=== PATIENT | male | born 1940 | race Caucasian/White ===

== ENCOUNTER 2020-09-05 17:30 | Emergency (ER) | payer OTHER ==
[~2020-09-05] VITALS: Ht 170.2 cm; Wt 70.3 kg
[2020-09-05] MEDS ORDERED: COZAAR50 MG (17:52)
[2020-09-05] MEDS ORDERED: ELIQUIS2.5 MG (17:52)
== END 2020-09-06 10:14 | disposition home or self-care (01) ==
LOC: ER 17:30
DX: N44.2 Benign cyst of testis (principal); N43.2 Other hydrocele; K59.09 Other constipation; N28.1 Cyst of kidney, acquired; R41.0 Disorientation, unspecified; F02.80 Dementia in other diseases classified elsewhere, unspecified severity, without behavioral disturbance, psychotic disturbance, mood disturbance, and anxiety; Z03.818 Encounter for observation for suspected exposure to other biological agents ruled out; R50.9 Fever, unspecified; R53.81 Other malaise